=== PATIENT | female | born 1990 | race Two or more races ===

== ENCOUNTER 2023-11-12 21:16 | Emergency (ER) | payer OTHER ==
[~2023-11-12] VITALS: Ht 162.6 cm; Wt 90.7 kg
[2023-11-12] MEDS ORDERED: NAPR500T6 PO (22:21)
[2023-11-12] MEDS ORDERED: ACETAMINOPHEN ES 500 MG TABLET ONE (22:34)
[2023-11-12] MEDS ORDERED: IBUPROFEN 400 MG TABLET ONE (22:35)
[2023-11-12] MEDS: IBUPROFEN 400 MG TABLET PO ONE (22:38)
[2023-11-12] MEDS: ACETAMINOPHEN ES 500 MG TABLET PO ONE (22:38)
[2023-11-13 04:04] VITALS: BP 132/89; TEMP 98.2; O2SAT 99
== END 2023-11-13 04:05 | disposition home or self-care (01) ==
LOC: ER 21:27
DX: S86.911A Strain of unspecified muscle(s) and tendon(s) at lower leg level, right leg, initial encounter (principal); X58.XXXA Exposure to other specified factors, initial encounter; Y93.89 Activity, other specified; Y92.89 Other specified places as the place of occurrence of the external cause; Y99.8 Other external cause status
CPT/HCPCS: 73590-TC